=== PATIENT | female | born 1995 | race Caucasian/White ===

== ENCOUNTER → 2017-03-16 | Outpatient (CLI) | payer OTHER ==
--- NOTE | 2017-03-16 14:38 | MAMMOGRAPHY REPORT ---
ULTRASOUND OF BOTH BREASTS: 03/16/2017 CLINICAL HISTORY: 22-year-old woman presents with nonfocal bilateral intermittent sharp mastalgia and also a tiny bump she describes in the 12:00 far superior right breast. No skin erythema or nipple d ischarge. COMPARISON: No prior exams were available for comparison. FINDINGS: Real-time high-resolution ultrasound was performed in both breasts, given the nonfocal christiano ure of the mastalgia, with particular attention to the superior aspect of each breast and also with p articular attention to the 12:00 right breast, 8 cm from the nipple in the area of small bump pointed out by the patient. In the right 12:00 axis, 8 cm from the nipple, there is an intradermal isoechoi c and hypoechoic solid versus cystic mass with possible punctum extending to the dermal surface, ace uring 3.4 x 2.7 x 4.1 mm. No internal vascularity. This most likely represents a sebaceous cyst or epidermal inclusion cyst. Continued clinical monitoring is recommended. Throughout the remainder of both breasts, sonographically normal dense glandular tissue is seen without a discrete solid or cyst ic mass. No focal skin thickening or drainable fluid collection identified. IMPRESSION: ACR BI-RADS CATEGORY 2: BENIGN 1. The tiny bump in the 12:00 right breast, 8 cm from the nipple correlates with an intradermal lesi on measuring 4.1 mm, that could represent a benign epidermal inclusion cyst or sebaceous cyst. Nehemiah nued clinical monitoring and follow-up is recommended. 2. No suspicious solid or cystic mass, evidence of malignancy or other abnormality identified in eit her breast on targeted ultrasound to explain the bilateral nonfocal mastalgia. Therefore, clinical f ollow-up is recommended. These results and recommendations were discussed with the patient at the time of the exam. Kristy Ferreira M.D. ay/:03/16/2017 14:12:41 Neckties Painter: Dr. Kristy Ferreira, [facility] letter sent: Normal 1/2 BI-RADS Code: ACR BI-RADS Category 2: Benign
== END | disposition home or self-care (01) ==
LOC: C.MAMM 13:34
PROVIDERS: ATTEND Nurse Practitioner Obstetrics & Gynecology
DX: N64.4 Mastodynia (principal); N63.10 Unspecified lump in the right breast, unspecified quadrant